=== PATIENT | female | born 1970 | race Caucasian/White ===

== ENCOUNTER 2018-01-12 18:55 | Emergency (ER) | payer OTHER ==
[~2018-01-12 18:55] MED LIST: LISI20TA PO; METF10004 PO; SIMV-260 PO; [UNRECOGNIZED DRUG - CODE]
== END 2018-01-12 19:17 | disposition left against medical advice (07) ==
LOC: EMS 18:56
DX: R42 Dizziness and giddiness (principal); Z53.21 Procedure and treatment not carried out due to patient leaving prior to being seen by health care provider

== ENCOUNTER 2018-06-07 12:04 | Emergency (ER) | payer OTHER ==
[~2018-06-07] VITALS: Ht 160 cm; Wt 100.0 kg
[~2018-06-07 12:04] MED LIST changes: +METF-446 PO; -METF10004 PO
[2018-06-07 12:35] VITALS: BP 127/94
[2018-06-07] MEDS ORDERED: KETOROLAC TROMETHAMINE 30 MG/ML VIAL IM ONE (13:15)
== END 2018-06-07 13:40 | disposition home or self-care (01) ==
LOC: EMS 12:07
DX: M54.6 Pain in thoracic spine (principal); M54.5 Low back pain; E11.9 Type 2 diabetes mellitus without complications; E78.00 Pure hypercholesterolemia, unspecified; I10 Essential (primary) hypertension; Z79.4 Long term (current) use of insulin; Z79.84 Long term (current) use of oral hypoglycemic drugs; Z79.899 Other long term (current) drug therapy
CPT/HCPCS: 96372; 99283; J1885

== ENCOUNTER 2018-12-04 14:28 | Emergency (ER) | payer OTHER ==
[~2018-12-04] VITALS: Ht 160 cm; Wt 94.5 kg
[2018-12-04] MEDS ORDERED: ENAL5 PO (14:45)
[2018-12-04] MEDS ORDERED: INSLAN SQ (14:45)
[2018-12-04 14:49] LABS: GLUCOSE,POINT OF CARE 125 MG/DL (70-110)
[2018-12-04] MEDS ORDERED: SODIUM CHLORIDE 0.9% 1,000 ML IV ONE (15:45)
[2018-12-04 16:10] LABS: BASOPHILS % (AUTO) 0.8 % (0.0-2.0); EOSINOPHILS % (AUTO) 0.6 % (1.0-6.0); HEMATOCRIT 35.1 % (36-46); HEMOGLOBIN 11.1 g/dL (12.0-16.0); LYMPHOCYTES # (AUTO) 1.3 K/uL (1.0-4.8); LYMPHOCYTES % (AUTO) 14.9 % (22.0-44.0); MEAN CORPUSCULAR HEMOGLOBIN 22.8 pg (26.0-34.0); MEAN CORPUSCULAR HGB CONC 31.7 G/dL (31.0-37.0); MEAN CORPUSCULAR VOLUME 72 fL (80-100); MONOCYTES % (AUTO) 11.8 % (2.0-9.0); NEUTROPHILS # (AUTO) 6.2 K/uL (1.8-7.7); NEUTROPHILS % (AUTO) 71.9 % (40.0-70.0); PLATELET COUNT (AUTO) 219 K/uL (150-450); RED BLOOD CELL COUNT(AUTO) 4.88 MIL/uL (4.00-5.20); RED CELL DISTRIBUTION WIDTH 17.7 % (11.5-14.5)
[2018-12-04 16:11] LABS: APPEARANCE,URINE CLOUDY (CLEAR); GLUCOSE, URINE (UA) 500 mg/dL (NEGATIVE); KETONES,URINE TRACE mg/dL (NEGATIVE); LEUKOCYTE ESTERASE ,URINE MODERATE (NEGATIVE); NITRATE,URINE POSITIVE (NEGATIVE); OCCULT BLOOD,URINE LARGE (NEGATIVE); PROTEIN,URINE SEE CONFIRM (NEGATIVE)
[2018-12-04 16:19] LABS: BILIRUBIN,URINE PRELIM. POSITIVE (NEGATIVE)
[2018-12-04 16:21] LABS: ANION GAP 9 mmol/L (8-16); CALCIUM, TOTAL 8.7 mg/dL (8.8-10.5); CARBON DIOXIDE 26 mmol/L (22-29); CHLORIDE 103 mmol/L (98-107); CREATININE 0.69 mg/dL (0.60-1.30); GLOMERULAR FILTR. RATE CALC > 60 mL/min (>60); GLUCOSE,RANDOM 97 mg/dL (70-110); POTASSIUM 3.4 mmol/L (3.5-5.1); SODIUM SERUM 138 mmol/L (136-145); UREA NITROGEN, BLOOD 10 mg/dL (7-18)
[2018-12-04 16:23] LABS: SULFOSALICYLIC ACID,URINE 4+ (Negative)
[2018-12-04 16:24] LABS: BACTERIA,URINE Many /HPF (None Seen); RBC,URINE >100 /HPF (0-2); WBC,URINE >100 /HPF (0-5)
[2018-12-04 16:25] LABS: SQUAMOUS EPITHELIAL CELL,UR Moderate /LPF (None Seen)
[2018-12-04 16:29] LABS: ALANINE AMINOTRANSFERASE 24 U/L (12-78); ALKALINE PHOSPHATASE 90 U/L (46-116); ASPARTATE AMINOTRANSFERASE 22 U/L (15-37); BILIRUBIN,TOTAL 0.2 mg/dL (0.1-1.0); TOTAL PROTEIN, SERUM 7.7 g/dL (6.4-8.2)
[2018-12-04] MEDS ORDERED: KETOROLAC TROMETHAMINE 30 MG/ML VIAL IVP ONE (16:30)
[2018-12-04] MEDS ORDERED: POTASSIUM CHLORIDE 20 MEQ ER TABLET PO ONE (16:30)
[2018-12-04] MEDS ORDERED: CefTRIAXone 1 GM/DEXTROSE 50 ML IV ONE (16:45)
[2018-12-04 16:49] LABS: INFLUENZA TYPE A NEGATIVE FOR TYPE A (NEGATIVE); INFLUENZA TYPE B POSITIVE FOR TYPE B (NEGATIVE)
[2018-12-04 18:08] VITALS: BP 133/84
== END 2018-12-04 18:14 | disposition home or self-care (01) ==
LOC: EMS 14:29
DX: J11.1 Influenza due to unidentified influenza virus with other respiratory manifestations (principal); N39.0 Urinary tract infection, site not specified; M79.10 Myalgia, unspecified site; E11.9 Type 2 diabetes mellitus without complications; E78.00 Pure hypercholesterolemia, unspecified; I10 Essential (primary) hypertension; Z79.4 Long term (current) use of insulin
CPT/HCPCS: 36415; 80053; 81001; 82962; 85025; 87077; 87086; 87186; 87804; 96365; 96375; 99283; J0696; J1885; J7030; 96361

== ENCOUNTER 2020-03-24 13:15 | Emergency (ER) | payer OTHER ==
[~2020-03-24] VITALS: Ht 160 cm; Wt 97.7 kg
[~2020-03-24 13:15] MED LIST changes: +ENAL5TAB17 PO; +INSLAN SQ; -LISI20TA PO
[2020-03-24] MEDS ORDERED: SODIUM CHLORIDE 0.9% 1,000 ML IV ONE ×2 (13:45→17:00)
[2020-03-24] MEDS ORDERED: ACETAMINOPHEN 500 MG TABLET PO ONE (14:15)
[2020-03-24] MEDS ORDERED: HYDR12.54 PO (14:19)
[2020-03-24] MEDS ORDERED: SIMV-259 PO (14:19)
[2020-03-24] MEDS ORDERED: INSU100I26 SQ (14:19)
[2020-03-24] MEDS ORDERED: ENAL-90 PO (14:19)
[2020-03-24 14:44] LABS: BASOPHILS % (AUTO) 1.2 % (0.0-2.0); EOSINOPHILS % (AUTO) 1.2 % (1.0-6.0); HEMOGLOBIN 11.6 g/dL (12.0-16.0); LYMPHOCYTES # (AUTO) 1.7 K/uL (1.0-4.8); LYMPHOCYTES % (AUTO) 18.5 % (22.0-44.0); MEAN CORPUSCULAR HEMOGLOBIN 21.8 pg (26.0-34.0); MEAN CORPUSCULAR HGB CONC 31.4 G/dL (31.0-37.0); MEAN CORPUSCULAR VOLUME 69 fL (80-100); MONOCYTES # (AUTO) 0.5 K/uL (0.1-1.0); MONOCYTES % (AUTO) 5.4 % (2.0-9.0); NEUTROPHILS # (AUTO) 6.6 K/uL (1.8-7.7); NEUTROPHILS % (AUTO) 73.7 % (40.0-70.0); PLATELET COUNT (AUTO) 220 K/uL (150-450); RED BLOOD CELL COUNT(AUTO) 5.33 MIL/uL (4.00-5.20); RED CELL DISTRIBUTION WIDTH 19.1 % (11.5-14.5)
[2020-03-24 14:54] LABS: ANION GAP 8 mmol/L (8-16); CALCIUM, TOTAL 10.2 mg/dL (8.8-10.5); CARBON DIOXIDE 25 mmol/L (22-29); CHLORIDE 100 mmol/L (98-107); CREATININE 0.95 mg/dL (0.60-1.30); GLOMERULAR FILTR. RATE CALC > 60 mL/min (>60); GLUCOSE,RANDOM 339 mg/dL (70-110); POTASSIUM 4.3 mmol/L (3.5-5.1); SODIUM SERUM 133 mmol/L (136-145); UREA NITROGEN, BLOOD 16 mg/dL (7-18)
[2020-03-24 14:59] LABS: INR 0.9 (0.9-1.1); PROTHROMBIN TIME 9.8 SEC (9.4-11.6)
[2020-03-24 15:00] LABS: ALANINE AMINOTRANSFERASE 34 U/L (12-78); ALBUMIN 3.7 g/dL (3.4-5.0); ALKALINE PHOSPHATASE 93 U/L (46-116); ASPARTATE AMINOTRANSFERASE 21 U/L (15-37); BILIRUBIN,TOTAL 0.3 mg/dL (0.1-1.0); CREATINE KINASE, TOTAL ONLY 38 U/L (26-192); TOTAL PROTEIN, SERUM 7.6 g/dL (6.4-8.2)
[2020-03-24 15:38] LABS: COVID AG,FIA SOURCE NASAL SWAB
[2020-03-24 15:44] LABS: D-DIMER 0.29 mg/L FEU (0.00-0.50)
[2020-03-24 15:53] LABS: INFLUENZA TYPE A NEGATIVE FOR TYPE A (NEGATIVE); INFLUENZA TYPE B NEGATIVE FOR TYPE B (NEGATIVE)
[2020-03-24 16:01] LABS: HCG,QUANTITATIVE 2 mIU/mL (0-6)
[2020-03-24 16:42] LABS: LACTIC ACID 2.3 mmol/L (0.4-2.0)
[2020-03-24 17:00] LABS: GLUCOSE,POINT OF CARE 289 MG/DL (70-110)
[2020-03-24] MEDS ORDERED: CefTRIAXone 1 GM/DEXTROSE 50 ML IV ONE (17:15)
[2020-03-24 17:45] LABS: APPEARANCE,URINE CLOUDY (CLEAR); BILIRUBIN,URINE NEGATIVE (NEGATIVE); GLUCOSE, URINE (UA) >=1000 mg/dL (NEGATIVE); KETONES,URINE TRACE mg/dL (NEGATIVE); LEUKOCYTE ESTERASE ,URINE SMALL (NEGATIVE); NITRATE,URINE POSITIVE (NEGATIVE); OCCULT BLOOD,URINE NEGATIVE (NEGATIVE); PROTEIN,URINE SEE CONFIRM (NEGATIVE); UROBILINOGEN,URINE 0.2 mg/dL (<=1.0)
[2020-03-24 18:02] LABS: SULFOSALICYLIC ACID,URINE 3+ (Negative)
[2020-03-24 18:03] LABS: BACTERIA,URINE Many /HPF (None Seen); RBC,URINE None Seen /HPF (0-2); SQUAMOUS EPITHELIAL CELL,UR Moderate /LPF (None Seen)
[2020-03-24 20:30] VITALS: BP 124/76
== END 2020-03-24 20:43 | disposition home or self-care (01) ==
LOC: EMS 13:17
DX: N39.0 Urinary tract infection, site not specified (principal); E11.65 Type 2 diabetes mellitus with hyperglycemia; M79.10 Myalgia, unspecified site; E78.00 Pure hypercholesterolemia, unspecified; I10 Essential (primary) hypertension; Z20.828 Contact with and (suspected) exposure to other viral communicable diseases; Z79.4 Long term (current) use of insulin
CPT/HCPCS: 36415; 71045; 80053; 81001; 82550; 82962; 83605; 84484; 84702; 85025; 85379; 85610; 85730; 87040; 87086; 87426; 87804; 93005; 96361; 96365; 99285; J0696; J7030; U0003

== ENCOUNTER 2025-05-11 18:07 | Emergency (ER) | payer OTHER ==
[~2025-05-11] VITALS: Ht 160 cm; Wt 83.6 kg
[~2025-05-11 18:07] MED LIST changes: +ENAL-90 PO; -ENAL5TAB17 PO; +HYDR12.54 PO; -INSLAN SQ; +INSU100I26 SQ; +SIMV-259 PO; -SIMV-260 PO; -[UNRECOGNIZED DRUG - CODE]
[2025-05-11 18:13] VITALS: TEMP 98.1
[2025-05-11 18:38] LABS: PLATELET COUNT (AUTO) 194 K/uL (150-450); RED BLOOD CELL COUNT(AUTO) 4.29 MIL/uL (4.00-5.20); RED CELL DISTRIBUTION WIDTH 14.8 % (11.5-14.5); WHITE BLOOD COUNT (AUTO) 7.0 K/uL (4.5-11.0)
[2025-05-11 18:46] LABS: CREATININE 1.02 mg/dL (0.60-1.30); GLUCOSE,RANDOM 106.0 mg/dL (70-110); SODIUM SERUM 138.0 mmol/L (136-145); UREA NITROGEN, BLOOD 26.0 mg/dL (7-18)
[2025-05-11 18:47] LABS: CALCIUM, TOTAL 9.1 mg/dL (8.8-10.5); GLOMERULAR FILTR. RATE CALC 57.0 mL/min (>60)
[2025-05-11] MEDS ORDERED: SULF1TAB94 PO (22:31)
[2025-05-11] MEDS ORDERED: CEPH-558 PO (22:31)
[2025-05-11] MEDS: CefTRIAXone SODIUM 1 GM/VIAL IM ONE (22:45)
[2025-05-11] MEDS: SULFAMETHOX/TRIMETH DS 800-160 MG/TABLET PO ONE (22:45)
[2025-05-11] MEDS: LIDOCAINE/PF 1% 2 ML VIAL IM ONE (22:45)
[2025-05-11 22:46] VITALS: BP 138/72; PULSE 75; RESP 16; O2SAT 98
== END 2025-05-11 22:50 | disposition home or self-care (01) ==
LOC: EMS 18:07
DX: L03.311 Cellulitis of abdominal wall (principal); E11.9 Type 2 diabetes mellitus without complications; E78.00 Pure hypercholesterolemia, unspecified; I10 Essential (primary) hypertension; Z79.899 Other long term (current) drug therapy
CPT/HCPCS: 99283; 80048; 82962; 85025; 36415; 96372; J0696; J3490